=== PATIENT | female | born 1965 | race Caucasian/White ===

== ENCOUNTER → 2016-11-16 | Outpatient (CLI) | payer MEDICAID ==
--- NOTE | 2016-11-16 11:34 | RADIOLOGY REPORT PS360 ---
KNEE-4 OR 5 VIEWS-LT HISTORY: BILAT KNEE PAIN COMPARISON: None FINDINGS: Technique: Weightbearing AP, lateral and Greer views were performed as well as oblique. Bony Structures: No fracture or dislocation. No lytic or blastic change. Normal mineralization. Joint Space: Well-preserved. No significant arthritic changes evident. Soft Tissues: Unremarkable. No obvious joint effusion. No radio opaque foreign bodies or soft tissue gas. Other findings: No other significant findings IMPRESSION: Negative Knee
--- NOTE | 2016-11-16 11:37 | RADIOLOGY REPORT PS360 ---
KNEE-4 OR 5 VIEWS-RT HISTORY: BILAT KNEE PAIN COMPARISON: None FINDINGS: Technique: Weightbearing AP, lateral and Greer views were performed as well as oblique. Normal alignment. No fracture or dislocation. Joint spaces are well-preserved. Soft tissue calcification noted along the proximal aspect of the tibia medially. There is an additional oval soft tissue density measuring 17 mm projecting over the superior patella on the AP view. Etiology is indeterminate. Projects out of the plane of the patella on the oblique view. IMPRESSION: 1. No acute finding. 2. Nonspecific soft tissue calcifications.
== END ==
LOC: RAD 10:10
DX: M25.561 Pain in right knee (principal); M25.562 Pain in left knee

== ENCOUNTER → 2017-07-26 | Outpatient (CLI) | payer MEDICAID ==
[~2017-07-26] MED LIST: ASPIRIN 81MG TA81 MG PO; DICLOFENAC SODI75 M2 PO; LISINOPRIL2.5 MG PO; LORATADINE 10MG10 M1 PO; NORCO 325 MG-51 TAB PO
== END ==
LOC: LAB 15:55
DX: R35.1 Nocturia (principal)

== ENCOUNTER → 2017-10-11 | Outpatient (CLI) | payer MEDICAID ==
[2017-10-11 12:40] LABS: LYMPH # 2.3 K/mm3 (0.7-4.5); LYMPH % 31.8 % (10-50.0)
[2017-10-11 12:46] LABS: HEMOGLOBIN 13.1 g/dL (12.2-16.2)
[2017-10-11 12:55] LABS: URINE BILIRUBIN - DIPSTICK NEGATIVE (NEG); URINE BLOOD NEGATIVE (NEG)
[2017-10-11 15:30] LABS: BUN 17 mg/dL (7-18)
[2017-10-11 15:41] LABS: GFR (ESTIMATED) 52 ML/MIN (59-)
== END ==
LOC: LAB 12:24
PROVIDERS: Internal Medicine Nephrology
DX: N18.3 Chronic kidney disease, stage 3 (moderate) (principal)